=== PATIENT | female | born 1980 | race Caucasian/White ===

== ENCOUNTER → 2017-10-15 | Outpatient (CLI) | payer MEDICAID ==
[~2017-10-15] MED LIST: ALBU18HF INH; AMOX1TAB64 PO; ASCO1TAB4 PO; BUDE0.5A11 TP; CETI10CA PO; DIAZ10TA PO; DIAZ5TAB PO; DOCU-180 PO; FURO-92 PO; FURO-93 PO; HYDR-3240 PO; LACT1CAP35 PO; LISI-167 PO; PRED10TA PO; RANI150C PO; RANI300C PO; TOPI50TA8 PO; linzess PO
[2017-10-15 10:13] LABS: BASOPHILS # (AUTO) 0.05 x10^3/uL (0-0.1); BASOPHILS % (AUTO) 0 % (0-1); EOSINOPHILS # (AUTO) 0.33 x10^3/uL (0-0.4); EOSINOPHILS % (AUTO) 3 % (1-7); LYMPHOCYTES # (AUTO) 2.93 x10^3/uL (1-3.4); LYMPHOCYTES % (AUTO) 25 % (22-44); MD NO; MEAN CORPUSCULAR HEMOGLOBIN 31.4 pg (27.0-34.8); MEAN CORPUSCULAR HGB CONC 33.9 g/dL (32.4-35.8); MEAN CORPUSCULAR VOLUME 92.6 fL (80-100); MEAN PLATELET VOLUME 7.5 fL (7.4-10.4); MONOCYTES # (AUTO) 0.89 x10^3/uL (0.2-0.8); MONOCYTES % (AUTO) 8 % (2-9); NEUTROPHILS # (AUTO) 7.59 x10^3/uL (1.8-6.8); NEUTROPHILS % (AUTO) 64 % (42-75); PLATELET COUNT 374 x10^3/uL (130-400); RED BLOOD COUNT 4.03 x10^6/uL (3.82-5.3); RED CELL DISTRIBUTION WIDTH 14.1 % (9.6-15.2)
[2017-10-15 10:20] LABS: ALANINE AMINOTRANSFERASE 27 U/L (12-78); ANION GAP 4 mmol/L (5-15); CALCIUM 8.4 mg/dL (8.5-10.1); CHLORIDE 108 mmol/L (98-107)
[2017-10-15 10:22] LABS: ALKALINE PHOSPHATASE 74 U/L (45-117); BILIRUBIN,TOTAL 0.3 mg/dL (0.2-1.0); TOTAL PROTEIN 7.7 g/dL (6.4-8.2)
== END | disposition home or self-care (01) ==
LOC: STAR 08:46
PROVIDERS: ATTEND Specialist
DX: Z01.818 Encounter for other preprocedural examination (principal); N93.9 Abnormal uterine and vaginal bleeding, unspecified; L68.0 Hirsutism; E28.2 Polycystic ovarian syndrome
CPT/HCPCS: 36415; 80053; 85025; 93005

== ENCOUNTER 2017-10-25 11:33 | Inpatient (IN) | payer MEDICAID ==
[~2017-10-25] VITALS: Ht 165.1 cm; Wt 128.6 kg
[2017-10-25] MEDS ORDERED: LACTATED RINGERS 1,000 ML IV SCH (11:52)
[2017-10-25] MEDS ORDERED: FENTANYL PF 250 MCG/5ML ONE (13:34)
[2017-10-25] MEDS ORDERED: MIDAZOLAM 1 MG/ML, 2ML ONE (13:34)
[2017-10-25] MEDS ORDERED: SUCCINYLCHOLINE 20 MG/ML, 10ML ONE (14:05)
[2017-10-25] MEDS ORDERED: CEFAZOLIN 1,000 MG ONE (14:05)
[2017-10-25] MEDS ORDERED: ROCURONIUM 10 MG/ML,10ML ONE (14:05)
[2017-10-25] MEDS ORDERED: PROPOFOL 10 MG/ML, 20ML ONE (14:05)
[2017-10-25] MEDS ORDERED: ONDANSETRON 2MG/ML, 2ML ONE (14:05)
[2017-10-25] MEDS ORDERED: DEXAMETHASONE 4 MG/ML, 1ML ONE (14:05)
[2017-10-25] MEDS ORDERED: ACETAMINOPHEN 325 MG TABLET PO PRN (15:00)
[2017-10-25] MEDS ORDERED: LABETALOL 5MG/ML, 20ML IV PRN (15:00)
[2017-10-25] MEDS ORDERED: METOCLOPRAMIDE 5 MG/ML, 2ML IV PRN (15:00)
[2017-10-25] MEDS ORDERED: HYDROmorphone 1 MG/ML, 1ML IV PRN (15:00)
[2017-10-25] MEDS ORDERED: OXYcodone 5 MG/5 ML ORAL.SOL UDC PO PRN (15:00)
[2017-10-25] MEDS ORDERED: ONDANSETRON 2MG/ML, 2ML IVPush PRN (15:00)
[2017-10-25] MEDS ORDERED: hydrALAzine 20 MG/ML, 1ML IV PRN (15:00)
[2017-10-25] MEDS ORDERED: FENTANYL PF 100 MCG/2ML ONE ×2 (16:08→16:41)
[2017-10-25] MEDS: FENTANYL PF 100 MCG/2ML IV PRN ×4 (16:11→17:03)
[2017-10-25] MEDS ORDERED: HYDROcodone/APAP 7.5-325MG/15ML UDC ONE (16:51)
[2017-10-25] MEDS ORDERED: MORPHINE SULFATE 4 MG/ML, 1ML IV PRN (17:00)
[2017-10-25] MEDS ORDERED: HYDROcodone/APAP 7.5-325MG/15ML UDC PO PRN (17:00)
[2017-10-25] MEDS ORDERED: D5%-LACTATED RINGERS 1,000 ML IV SCH (20:30)
[2017-10-25] MEDS ORDERED: ONDANSETRON 2MG/ML, 2ML IV PRN (20:30)
[2017-10-25] MEDS ORDERED: HYDROmorphone 2 MG/ML, 1ML IV PRN (20:30)
[2017-10-25] MEDS ORDERED: MEPERIDINE/PF 100 MG/ML IM PRN (20:30)
[2017-10-25 20:40] VITALS: BP 117/69
[2017-10-25] MEDS: CEFAZOLIN PMX 2GM/100ML 100 ML IVPB SCH (21:42)
[2017-10-25] MEDS: KETOROLAC 30 MG/1 ML IV SCH (21:43)
[2017-10-25] MEDS: D5%-LACTATED RINGERS 1,000 ML IV SCH (21:43)
[2017-10-25] MEDS: HYDROcodone/APAP 7.5-325MG/15ML UDC PO PRN (21:44)
[2017-10-26] VITALS: BP 143/75
[2017-10-26 04:00] VITALS: BP 118/69
[2017-10-26] MEDS: D5%-LACTATED RINGERS 1,000 ML IV SCH (04:30)
[2017-10-26] MEDS: HYDROcodone/APAP 7.5-325MG/15ML UDC PO PRN (04:45)
[2017-10-26] MEDS: KETOROLAC 30 MG/1 ML IV SCH ×2 (04:46→10:16)
[2017-10-26] MEDS: CEFAZOLIN PMX 2GM/100ML 100 ML IVPB SCH (06:35)
[2017-10-26 06:46] VITALS: BP 132/72
[2017-10-26] MEDS ORDERED: HYDR-3307 PO (11:12)
[2017-10-26] MEDS ORDERED: IBUP200T49 PO (11:13)
== END 2017-10-26 11:24 | disposition home or self-care (01) | DRG 743 ==
LOC: OUT 11:33 → EDSTATUS 14:00 → 4NOR 17:24 → OUT 23:33 → 4NOR 23:34 → DCLOUNGE 10-26 11:07
PROVIDERS: ADMIT Specialist; ATTEND Specialist
PROC: 0UT20ZZ Resection of Bilateral Ovaries, Open Approach (ICD-10-PCS; 2017-10-25)
PROC: 0UT70ZZ Resection of Bilateral Fallopian Tubes, Open Approach (ICD-10-PCS; 2017-10-25)
PROC: 0UT90ZL Resection of Uterus, Supracervical, Open Approach (ICD-10-PCS; principal; 2017-10-25 14:00)
DX: N94.6 Dysmenorrhea, unspecified (principal); E28.2 Polycystic ovarian syndrome; Z88.6 Allergy status to analgesic agent; Z88.8 Allergy status to other drugs, medicaments and biological substances; F17.210 Nicotine dependence, cigarettes, uncomplicated; I10 Essential (primary) hypertension; J45.909 Unspecified asthma, uncomplicated; N93.9 Abnormal uterine and vaginal bleeding, unspecified; Z82.49 Family history of ischemic heart disease and other diseases of the circulatory system; Z83.3 Family history of diabetes mellitus; Z88.1 Allergy status to other antibiotic agents
CPT/HCPCS: 36415; 85014; 85018; 86850; 86900; 88307; J0690; J1100; J1885; J2250; J2405; J2704; J3010; J0330; J7120; J7121

== ENCOUNTER 2018-09-05 18:54 | Emergency (ER) | payer MEDICAID, OTHER ==
[~2018-09-05] VITALS: Ht 165.1 cm; Wt 117.6 kg
[~2018-09-05 18:54] MED LIST changes: +HYDR-3307 PO; +IBUP200T49 PO
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
[2018-09-05] MEDS ORDERED: METHOCARBAMOL 750 MG TABLET PO ONE (19:30)
[2018-09-05] MEDS ORDERED: METHOCARBAMOL 750 MG TABLET ONE (19:39)
--- NOTE | 2018-09-05 19:45 | NUR ---
Pt medicated per AUG. Pt to imaging, with tech, via nabil.
--- NOTE | 2018-09-05 19:57 | NUR ---
Pt back to room from imaging.
--- NOTE | 2018-09-05 21:00 | NUR ---
Pt ambulated to bathroom with spouse's assistance.
[2018-09-05 21:35] VITALS: BP 157/88
== END 2018-09-05 21:37 | disposition home or self-care (01) ==
LOC: ED 19:53
DX: S16.1XXA Strain of muscle, fascia and tendon at neck level, initial encounter (principal); S39.012A Strain of muscle, fascia and tendon of lower back, initial encounter; G89.11 Acute pain due to trauma; M25.561 Pain in right knee; M25.562 Pain in left knee; I10 Essential (primary) hypertension; R07.89 Other chest pain; K21.9 Gastro-esophageal reflux disease without esophagitis; V49.09XA Driver injured in collision with other motor vehicles in nontraffic accident, initial encounter; Y93.89 Activity, other specified; Y92.89 Other specified places as the place of occurrence of the external cause; Y99.8 Other external cause status
CPT/HCPCS: 71045; 72072; 72110; 72125; 99284

== ENCOUNTER 2018-09-18 20:12 | Emergency (ER) | payer MEDICAID ==
[~2018-09-18] VITALS: Ht 165.1 cm; Wt 92.0 kg
[2018-09-18 20:17] VITALS: BP 156/91
[2018-09-18 21:26] LABS: BASOPHILS # (AUTO) 0.06 x10^3/uL (0-0.1); BASOPHILS % (AUTO) 1 % (0-1); EOSINOPHILS # (AUTO) 0.72 x10^3/uL (0-0.4); EOSINOPHILS % (AUTO) 6 % (1-7); LYMPHOCYTES # (AUTO) 3.04 x10^3/uL (1-3.4); LYMPHOCYTES % (AUTO) 25 % (22-44); MD NO; MEAN CORPUSCULAR HEMOGLOBIN 31.7 pg (27.0-34.8); MEAN CORPUSCULAR HGB CONC 34.9 g/dL (32.4-35.8); MEAN PLATELET VOLUME 7.5 fL (7.4-10.4); MONOCYTES # (AUTO) 0.66 x10^3/uL (0.2-0.8); MONOCYTES % (AUTO) 5 % (2-9); NEUTROPHILS # (AUTO) 7.71 x10^3/uL (1.8-6.8); NEUTROPHILS % (AUTO) 63 % (42-75); PLATELET COUNT 341 x10^3/uL (130-400); RED BLOOD COUNT 4.37 x10^6/uL (3.82-5.3); RED CELL DISTRIBUTION WIDTH 13.6 % (9.6-15.2)
[2018-09-18 21:36] LABS: ALANINE AMINOTRANSFERASE 35 U/L (12-78); ALBUMIN 3.9 g/dL (3.4-5.0); ANION GAP 6 mmol/L (5-15); CALCIUM 8.9 mg/dL (8.5-10.1); CHLORIDE 106 mmol/L (98-107)
[2018-09-18 21:38] LABS: ALKALINE PHOSPHATASE 94 U/L (45-117); BILIRUBIN,TOTAL 0.2 mg/dL (0.2-1.0); TOTAL PROTEIN 7.9 g/dL (6.4-8.2)
--- NOTE | 2018-09-18 22:59 | NUR ---
PT STATES "I THINK I'M HAVING AN ALLERGIC REACTION TO [place]DS". C/O VOMITING, DIZZINESS, STATES SHE HAS HAD A SYNCOPAL EPISODE, DENIES ANY RASH/SWELLING IN THROAT. ALSO C/O HEADACHE AND ABD PAIN. AIRWAY PATENT, NO SWELLING NOTED. PT ALSO C/O RINGING IN THE EARS. VITALS STABLE
[2018-09-18] MEDS ORDERED: ONDANSETRON ODT 4 MG ONE (23:13)
[2018-09-18] MEDS ORDERED: FAMOTIDINE 20 MG TABLET PO ONE (23:30)
[2018-09-18] MEDS ORDERED: MAALOX/HYOSCYAMINE/LIDOCAINE 45 ML BTL PO ONE (23:30)
--- NOTE | 2018-09-19 | NUR ---
PT REFUSED GI COCKTAIL IT HAS AN ARTIFICAL SWEETENER IN [place]. LAST TIME PT WENT IN TO [facility], PA NOTIFIED
[2018-09-19] MEDS ORDERED: MAALOX/HYOSCYAMINE/LIDOCAINE 45 ML BTL ONE (00:08)
[2018-09-19] MEDS ORDERED: FAMOTIDINE 20 MG TABLET ONE (00:08)
[2018-09-19] MEDS ORDERED: DEXAMETHASONE 4 MG TABLET PO ONE (00:30)
[2018-09-19 00:35] LABS: MICROSCOPIC INDICATED
[2018-09-19 00:42] LABS: CULTURE INDICATED? NO
[2018-09-19] MEDS ORDERED: DEXAMETHASONE 4 MG TABLET ONE (01:14)
--- NOTE | 2018-09-19 01:15 | NUR ---
PT SLEEPING, EASILY AWAKENED, MEDICATED PER eMAR
== END 2018-09-19 02:15 | disposition home or self-care (01) ==
LOC: ED 23:39
DX: R10.13 Epigastric pain (principal); R11.2 Nausea with vomiting, unspecified; R16.0 Hepatomegaly, not elsewhere classified; E88.89 Other specified metabolic disorders; F17.210 Nicotine dependence, cigarettes, uncomplicated; I10 Essential (primary) hypertension
CPT/HCPCS: 36415; 74022; 76700; 80053; 81001; 83690; 85025; 93005; 99284

== ENCOUNTER 2019-05-29 23:23 | Emergency (ER) | payer MEDICAID ==
[~2019-05-29] VITALS: Ht 165.1 cm; Wt 115.9 kg
[~2019-05-29 23:23] MED LIST changes: -HYDR-3307 PO; +HYDR-36 PO
[2019-05-30] MEDS ORDERED: ALBUTEROL/IPRATROPIUM 2.5MG/0.5MG, 3 ML NPPB ONE
--- NOTE | 2019-05-30 00:07 | NUR ---
Patient into room with spouse. RN to bedside, followed by provider and scribe. Patient reports difficulty breathing, attached to blood pressure cuff and pulsatile oxygen sensor. Patient Spo2 @ 93%. Appears lethargic, speaks in short sentences and during respiratory auscultation patient had coughing spell. Hoarse and nonproductive. Spo2 increased after cough to 96%. Rn returned to bedside after having respiratory therapist called. Administered prednisone per MD order (see eMAR) and debug technician was at bedside. Patient reported history of a lung tear after lengthy prednisone treatment as a child. Educated by provider that this would be highly unlikely with a short steroid course and RN educated patient on choosing other pain medication beside nonsteroidal inflammatories. Patient verbalized understanding. Chest Xray completed, and respitory therapist at bedside immediately after.
[2019-05-30 00:08] LABS: BASOPHILS % (AUTO) 1 % (0-1); EOSINOPHILS # (AUTO) 0.19 x10^3/uL (0-0.4); EOSINOPHILS % (AUTO) 3 % (1-7); LYMPHOCYTES # (AUTO) 1.81 x10^3/uL (1-3.4); LYMPHOCYTES % (AUTO) 23 % (22-44); MD NO; MEAN CORPUSCULAR HEMOGLOBIN 31.9 pg (27.0-34.8); MEAN CORPUSCULAR HGB CONC 33.7 g/dL (32.4-35.8); MEAN CORPUSCULAR VOLUME 94.5 fL (80-100); MEAN PLATELET VOLUME 8.1 fL (7.4-10.4); MONOCYTES # (AUTO) 0.86 x10^3/uL (0.2-0.8); MONOCYTES % (AUTO) 11 % (2-9); NEUTROPHILS # (AUTO) 4.81 x10^3/uL (1.8-6.8); NEUTROPHILS % (AUTO) 62 % (42-75); PLATELET COUNT 268 x10^3/uL (130-400); RED BLOOD COUNT 4.49 x10^6/uL (3.82-5.3); RED CELL DISTRIBUTION WIDTH 13.7 % (9.6-15.2)
[2019-05-30 00:18] LABS: ALBUMIN 3.9 g/dL (3.4-5.0); ANION GAP 6 mmol/L (5-15); CALCIUM 8.6 mg/dL (8.5-10.1); CHLORIDE 106 mmol/L (98-107); CREATININE 0.92 mg/dL (0.55-1.02)
[2019-05-30 00:53] VITALS: BP 102/61
== END 2019-05-30 00:55 | disposition home or self-care (01) ==
LOC: ED 23:49
DX: R55 Syncope and collapse (principal); J20.9 Acute bronchitis, unspecified
CPT/HCPCS: 36415; 71045; 80048; 82040; 85025; 93005; 94640; 99284; J7512; J7620

== ENCOUNTER 2020-07-25 18:26 | Emergency (ER) | payer BC, MEDICAID, OTHER ==
[~2020-07-25] VITALS: Ht 165.1 cm; Wt 125.0 kg
[~2020-07-25 18:26] MED LIST changes: +HYDR-1067 PO; -HYDR-3240 PO; +HYDR-3248 PO; -HYDR-36 PO
[2020-07-25 18:34] VITALS: BP 189/102
[2020-07-25] MEDS ORDERED: KETOROLAC 30 MG/1 ML IM ONE (19:30)
[2020-07-25] MEDS ORDERED: DIAZEPAM 5 MG TABLET PO ONE (19:30)
[2020-07-25] MEDS ORDERED: KETOROLAC 30 MG/1 ML ONE (19:50)
[2020-07-25] MEDS ORDERED: DIAZEPAM 5 MG TABLET ONE (19:50)
[2020-07-25] MEDS ORDERED: METHOCARBAMOL 750 MG TABLET ONE (20:14)
[2020-07-25] MEDS ORDERED: METHOCARBAMOL 750 MG TABLET PO ONE (20:30)
--- NOTE | 2020-07-25 21:02 | NUR ---
IMMOBILIZER APPLIED, PT PROVIDED WITH WORK SLIP. DISCHARGED OUT THE FRONT WITHOUT ISSUE.
== END 2020-07-25 21:05 | disposition home or self-care (01) ==
LOC: ED 19:47
DX: S42.141A Displaced fracture of glenoid cavity of scapula, right shoulder, initial encounter for closed fracture (principal); G89.11 Acute pain due to trauma; F17.210 Nicotine dependence, cigarettes, uncomplicated; X58.XXXA Exposure to other specified factors, initial encounter; Y93.89 Activity, other specified; Y92.89 Other specified places as the place of occurrence of the external cause; Y99.0 Civilian activity done for income or pay
CPT/HCPCS: 29105; 73030; 96372; 99283; J1885